=== PATIENT | male | born 1950 | race Caucasian/White ===

== ENCOUNTER 2025-05-23 12:29 | Emergency (ER) | payer MEDICARE ==
[~2025-05-23] VITALS: Ht 170.2 cm; Wt 64.3 kg
[2025-05-23 12:46] VITALS: TEMP 98
[2025-05-23] MEDS: SODIUM CHLORIDE 0.9% 1,000 ML IV ONE (13:23)
[2025-05-23 13:29] LABS: COVID AG,FIA SOURCE NASAL SWAB
[2025-05-23 13:29] LABS: PLATELET COUNT (AUTO) 170 K/uL (150-450); RED BLOOD CELL COUNT(AUTO) 3.12 MIL/uL (4.50-5.90); RED CELL DISTRIBUTION WIDTH 16.3 % (11.5-14.5); WHITE BLOOD COUNT (AUTO) 4.7 K/uL (4.5-11.0)
[2025-05-23 13:39] LABS: CALCIUM, TOTAL 9.2 mg/dL (8.8-10.5); CREATININE 1.66 mg/dL (0.60-1.30); GLOMERULAR FILTR. RATE CALC 40 mL/min (>60); GLUCOSE,RANDOM 91 mg/dL (70-110); SODIUM SERUM 137 mmol/L (136-145); UREA NITROGEN, BLOOD 23 mg/dL (7-18)
[2025-05-23 13:41] LABS: ASPARTATE AMINOTRANSFERASE 22.0 U/L (15-37); TOTAL PROTEIN, SERUM 6.6 g/dL (6.4-8.2)
[2025-05-23 13:48] LABS: TROPONIN I-HIGH SENSITIVITY 6 ng/L (<76)
[2025-05-23 13:59] LABS: INFLUENZA TYPE A NEGATIVE FOR TYPE A (NEGATIVE); INFLUENZA TYPE B NEGATIVE FOR TYPE B (NEGATIVE); SARS-COV2 (COVID) ANTIGEN,FIA Negative (Negative)
[2025-05-23 14:23] LABS: RBC MORPHOLOGY COMMENT ABNORMAL RBC MORPH
[2025-05-23 14:34] LABS: APPEARANCE,URINE CLEAR (CLEAR); GLUCOSE, URINE (UA) NEGATIVE (NEGATIVE); LEUKOCYTE ESTERASE ,URINE NEGATIVE (NEGATIVE); NITRATE,URINE NEGATIVE (NEGATIVE); OCCULT BLOOD,URINE NEGATIVE (NEGATIVE); SPECIFIC GRAVITIY, URINE 1.018 (1.003-1.030)
[2025-05-23 15:00] VITALS: BP 129/61; PULSE 59; RESP 12; O2SAT 100
== END 2025-05-23 16:26 | disposition home or self-care (01) ==
LOC: EMS 12:33
DX: R42 Dizziness and giddiness (principal); I10 Essential (primary) hypertension; Z79.01 Long term (current) use of anticoagulants; Z98.890 Other specified postprocedural states; Z20.822 Contact with and (suspected) exposure to COVID-19
CPT/HCPCS: 99285; 96360; 71045; 87426; 80048; 80076; 81003; 84484; 85025; 87804; 36415; 93005; J7030